=== PATIENT | male | born 1975 | race Caucasian/White ===

== ENCOUNTER 2019-06-12 06:02 | Day surgery (SDC) | payer BC ==
--- NOTE | 2019-06-05 10:31 | RAD REPORT ---
EXAM DESCRIPTION: RAD - Chest Pa And Lat (2 Views) - 06/05/2019 10:23 am CLINICAL HISTORY: preop Chest pain. COMPARISON: No comparisons FINDINGS: The lungs are clear. The heart is normal in size. No displaced fractures. Sternotomy wires noted. IMPRESSION: No acute or concerning finding suspected.
[2019-06-05 10:45] LABS: Absolute Lymphocytes (CBC) 2.9 K/uL (0.7-4.9); Basophils % 0.6 % (0-1.3); Hematocrit 46.5 % (39.6-49.0); Lymphocytes % 29.1 % (15.3-44.8); MPV 8.3 fL (7.6-11.3); RBC Red Blood Cell Count 5.24 M/uL (4.33-5.43)
[2019-06-05 10:48] LABS: Protime INR 0.96
[2019-06-05 10:54] LABS: Potassium 4.6 mmol/L (3.5-5.1)
--- NOTE | 2019-06-11 16:44 | PREOPHP ---
Date of Admission: 06/05/2019 History Of Present Illness: The patient presents to my office with chief complaint of a lump on the top of his foot overlying the second toe area on the left foot, present for only approximately 2 week s per the patient. The patient requests evaluation. Past Medical History: History of gout, ischemic heart disease, and hypertension. Past Surgical History: Cholecystectomy and aortic valve replacement. Current Medications: Aspirin, Plavix 75 mg, Bystolic 2.5 mg, and valsartan 40 mg. Allergies: NKDA. Social History: Patient denies smoking, IV drug use. Admits to social beer drinking. Family History: Gout and hypertension in his father and gout and cancer in his mother. Physical Examination: Vital Signs: Patient's weight is 260 pounds, height 6 feet 3 inches. General Appearance: Patient is healthy, well developed, well nourished, well oriented x3. Vascular: Evaluation reveals dorsalis pedis and posterior tibial pulses to be 4/4 bilaterally. Capi llary refill time is 1 second. Temperature gradient is within normal limits. There is no chief comp laint of claudication bilaterally. 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 Subtalar joint shows incre ased varus bilaterally. There is forefoot supination and adductus bilaterally. There is a medial em inence of the first metatarsal head with range of motion of 70 degrees on the right foot. Equinus is noted to be 10 degrees bilaterally per goniometer measurement digits. Digits on both feet are in no rmal alignment. Muscle testing, knee assessment, and ankle assessment are all within normal limits. There is a soft tissue subcutaneous mass located dorsally above the second intermetatarsal space on the left foot. Skin is freely movable over the growth. It measures 1.5 cm in diameter. There are n o skin changes seen, redness, or temp. It is mildly tender on palpation. Skin: Evaluation reveals no rash, ulcer, tumor, or contracture. Neurologic: Evaluation reveals deep tendon reflexes for the patellar and Achilles to be 5/5 bilatera lly. Vibratory and sharp dull sensation within normal limits. X-ray evaluation reveals no changes to the bone. In the area of the second interspace, there is a mi ld increase in density on the x-ray, but other than that, no changes on the x-ray were seen in the ar ea of the soft tissue mass. MRI evaluation detected a 2.5 mm cyst or erosion on the lateral margin o f the second metatarsal head, which was not visualized on x-ray. There was a 12 mm x 10 mm x 15 mm s oft tissue mass located, present at the dorsum of the forefoot at the level of the second metatarsal head abutting the lateral aspect of the extensor tendon and the second digit. There is a mild hyperi ntense signal on the T1 view. The soft tissue mass does not invade the bone or the tendon. 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 Diagnosis: Soft tissue mass, left foot. Recommendations: Excisional biopsy of soft tissue mass in the operating room with a frozen done firs t due to the rapid onset of the growth. Patient understands risks, benefits, and alternatives of the above-mentioned procedure including, but not limited to the risk of pain, swelling, numbness, stiffn ess, infection, nonhealing of skin or bone, recurrence of the soft tissue mass has also been explaine d to the patient. Due to the nature of the growth, patient understands that leaving it alone is not a viable alternative as this presents the risk of undiagnosed malignancy or enlargement of the growth necessitating a more involved removal at a later date. Patient has been cleared by Dr. Freitas from a cardiac standpoint. His Plavix and aspirin have been stopped 5 days prior to surgery and will be restarted after surgery. Patient was instructed on use of cold therapy machine. Lab work was perfor med. Medical H and P will be completed by Anesthesia. The patient is scheduled for surgery at [facility] on May. ARIANNA/YULIET Voice ID: [id number]
--- OUTSIDE RECORDS SUMMARY | 2019-06-12 06:10 | XMS REPORT | Summary of Care ---
:1975 Author Organization [facility] Address [address], [place] [address]- Encounter HQ Jaime(FIN) [id number] Date(s): 02/08/19 - 02/08/[address] [address]- [place] Discharge Disposition: Home or Self Care Attending Physician: Jose Miguel West MD Admitting Physician: Jose Miguel West MD Referring Physician: Jose Miguel West MD Vital Signs Most recent to oldest [Reference Range]: 1 2 Height 190.5 cm (02/08/19 7:46 AM) Blood Pressure [90-140/60-90 mmHg] 120/66 mmHg 114/69 mmHg (02/08/19 9:21 AM) (02/08/19 7:51 AM) Respiratory Rate [14-20 BRMIN] 16 BRMIN 15 BRMIN (02/08/19 9:21 AM) (02/08/19 7:51 AM) Peripheral Pulse Rate [60-100 bpm] 67 bpm 65 bpm (02/08/19 9:21 AM) (02/08/19 7:51 AM) Weight 112.727 kg (02/08/19 7:46 AM) Body Mass Index 31.06 m2 (02/08/19 7:46 AM) Problem List Condition Effective Dates Status Health Status Informant Gout(Confirmed) Active HTN (hypertension)(Confirmed) Active Allergies, Adverse Reactions, Alerts No Known Medication Allergies Medications aspirin 325 mg tablet, enteric coated 0 Refill(s) Start Date: 02/08/19 Status: OrderedBystolic 20 mg oral tablet 0 Refill(s) Start Date: 02/08/19 Status: OrderedDiovan 320 mg oral tablet 0 Refill(s) Start Date: 02/08/19 Status: Ordered Results Most recent to oldest [Reference Range]: 1 eGFR 92 mL/min/1.73m2 1 *NA* (02/08/19 8:03 AM) POC Creatinine [0.5-1.4 mg/dL] 1.0 mg/dL (02/08/19 8:03 AM) 1Result Comment: The eGFR is calculated using the CKD-EPI formula. In most young , healthy individualsthe eGFR will be >90 mL/min/1.73m2. The eGFR declines with age. An eGFR of 60-89 may be normal insome populations, particularly the elderly, for whom the CKD-EPI formula has not been extensively validated. Use of the eGFR is not recommended in the following populations: Individuals with unstable creatinine concentrations, including patients and those with serious co-morbid conditions. Patients with extremes in muscle mass or diet. The data above are obtained from the National Kidney Disease Education Program ( NKDEP) which additionally recommends that when the eGFR is used in patients with extremes of body mass index for purposesof drug dosing, the eGFR should be multiplied by the estimated BMI. Immunizations No data available for this section Procedures No data available for this section Social History Social History Type Response Smoking Status Never smoker; Ready to change: No; Concerns about tobacco use in household: No; Exposure to Tobacco Smoke None; Cigarette Smoking Last 365 Days No; Reg Smoking Cessation Counseling Yes entered on: 02/08/19 Assessment and Plan No data available for this section
--- OUTSIDE RECORDS SUMMARY | 2019-06-12 06:10 | XMS REPORT | Continuity of Care Document ---
:1975 Author Organization [employer] Care Team Providers Name Role Phone [employer] Unavailable Unavailable Problems Problem Status Onset Classification Date Comments Source Date Reported PREADMIT / TAVR Active [facility] / MAC / [facility] I35.[address] NONRHEUMATIC Active [facility] MITRAL (VALVE) [address] [place] [address] [facility] Active Problem 03/18/2019 [facility] HTN (Confirmed) Active Problem 03/18/2019 [facility] Medications Medication Details Route Status Patient Ordering Order Source Instructions Provider Date Aspirin 81 MG 81 mg=1 tab, PO, Active [facility] Chewable Tablet Daily, # 30 tab, 2018 Medical 3 Refill(s), [place] [facility] [address] clopidogrel 75 75 mg=1 tab, PO, Active 03/16[facility] mg oral tablet Daily, # 30 tab, 2018 Medical 3 Refill(s), [place] [facility]: [facility] [address] Enoxaparin 40 mg, 0.4 mL, Inactive [facility] Route: SUB-Q, 2019 Medical Drug form: INJ, [place] [id number], Dosing Weight 116.818, kg, Start date: 03/16/19 9:00:00 CDT, Duration: 30 day, Stop date: 04/14/19 9:00:00 CDTNotes: (Same as: Lovenox) Diovan 320 mg, 2 tab, Inactive [facility] Route: PO, Drug 2019 Medical form: TAB, Center Daily, Dosing Weight 116.818, kg, Start date: 03/16/19 9:00:00 CDT, Duration: 30 day, Stop date: 04/14/19 9:00:00 CDTNotes: Same as [place] POLYETHYLENE 17 gm, 1 pkt, Inactive [facility] GLYCOL 3350 Route: PO, Drug 2019 Medical form: PWDR, Center Daily, Dosing Weight 116.818, kg, Start date: 03/16/19 9:00:00 CDT, Duration: 30 day, Stop date: 04/14/19 9:00:00 CDTNotes: Dissolve in 8 oz of water or juice. (Same as: Miralax) Aspirin 81 mg, 1 tab, Inactive [place] Route: PO, Drug 2018 Medical form: ECTAB, Center Daily, Dosing Weight 116.818, kg, Start date: 03/16/19 9:00:00 CDT, Duration: 30 day, Stop date: 04/14/19 9:00:00 CDTNotes: Do not crush or chew. (Same As: Ecotrin) Tylenol 1,000 mg, 2 tab, No Longer [place] Route: PO, Drug Active 2018 Medical form: TAB, Q6H, Center Dosing Weight 116.818, kg, PRN Pain Score 1-5, Start date: 03/15/19 21:36:00 CDT, Duration: 30 day, Stop date: 04/14/19 21:35:00 CDTNotes: Max acetaminophen 4000 mg/day (4 gm/day). (Same as: Tylenol Extra Strength) Docusate 100 mg, 1 cap, No Longer [place] Route: PO, Drug Active 2018 Medical form: CAP, Q12H, Center Dosing Weight 116.818, kg, Start date: 03/15/19 21:00:00 CDT, Duration: 30 day, Stop date: 04/14/19 9:00:00 CDTNotes: (Same as: Colace) (Do Not Crush) benzonatate 100 mg, 1 cap, No Longer [place] Route: PO, Drug Active 2018 Medical form: CAP, TID, Center Dosing Weight 116.818, kg, PRN Cough, Start date: 03/15/19 20:58:00 CDT, Duration: 30 day, Stop date: 04/14/19 20:57:00 CDTNotes: (Same As: Amanda Hough) "Do Not Crush" Plavix 75 mg, 1 tab, No Longer [place] Route: PO, Drug Active 2018 Medical form: TAB, Center Daily, Dosing Weight 116.818, kg, Start date: 03/15/19 20:34:00 CDT, Duration: 30 day, Stop date: 04/14/19 9:00:00 CDTNotes: (Same As: Plavix) pantoprazole 40 mg, 1 tab, No Longer [facility] Route: PO, Drug Active 2018 Medical form: ECTAB, Center Before Dinner, Dosing Weight 116.818, kg, Start date: 03/15/19 16:30:00 CDT, Duration: 30 day, Stop date: 04/13/19 16:30:00 CDTNotes: Tablet should not be chewed or crushed. (Same as: Protonix) Cefazolin 1 gm, Route: Inactive [facility] IVPB, Q8H, 2019 Medical Dosing Weight Center 116.818, kg, Start date: 03/15/19 16:00:00 CDT, Duration: 1 doses or times, Stop date: 03/15/19 16:00:00 CDT, ABX Indication: Surgical ProphylaxisNotes : (Same As: Ancef Kefzol) MEDICATION WASTE Product Size: 1000 mg Product Wasted: ___ mg protamine Route: IV, Drug Inactive [place] (ANES) form: INJ, ONCE, 2018 Medical Stop date: [place] 03/15/19 10:34:00 CDT Ondansetron 4 mg, 2 mL, Inactive [facility] Route: IVP, Drug 2018 Medical form: INJ, ONCE, Center Dosing Weight 116.818, kg, PRN Nausea & Vomiting, Start date: 03/15/19 10:31:00 CDTNotes: (Same as: Zofran) MEDICATION WASTE Product Size: 4 mg Product Wasted: ___ mg Flumazenil 0.2 mg, 2 mL, Inactive [facility] Route: IVP, Drug 2018 Medical form: INJ, PRN, Center Dosing Weight 116.818, kg, PRN Benzodiazepine Reversal, Initial dose, Start date: 03/15/19 10:31:00 CDT, Duration: 30 day, Stop date: 04/14/19 10:30:00 CDTNotes: (Same as: Romazicon) Oxycodone 5 mg, 1 tab, Inactive [place] Hydrochloride 5 Route: PO, Drug 2019 Medical MG Oral Tablet form: TAB, Q4H, Center Dosing Weight 116.818, kg, PRN Pain Score 4-6, Start date: 03/15/19 10:31:00 CDT, Duration: 30 day, Stop date: 04/14/19 10:30:00 CDTNotes: (Same as: Roxicodone) Naloxone 0.4 mg, 1 mL, Inactive [place] Route: IVP, Drug 2019 Medical form: INJ, Center Q2MIN, Dosing Weight 116.818, kg, PRN Narcotic Reversal, Start date: 03/15/19 10:31:00 CDT, Duration: 8 doses or times, Stop date: Limited # of timesNotes: Same as Narcan Acetaminophen 1,000 mg, 2 tab, Inactive [place] Route: PO, Drug 2019 Medical form: TAB, ONCE, Center Dosing Weight 116.818, kg, PRN Pain Score 1-3, Start date: 03/15/19 10:31:00 CDTNotes: Max acetaminophen 4000 mg/day (4 gm/day). (Same as: Tylenol Extra Strength) Fentanyl 25 microgram, Inactive [place] 0.5 mL, Route: 2019 Medical IVP, Drug form: Center INJ, Q5Min, Dosing Weight 116.818, kg, PRN Pain Score 4-6, Priority: Routine, Start date: 03/15/19 10:31:00 CDT, Duration: 4 doses or times, Stop date: Limited # of timesNotes: (Same as: Sublimaze) Preservative free. Hydralazine 10 mg, 0.5 mL, Inactive [place] Route: IVP, Drug 2019 Medical form: INJ, Center Q20Min, Dosing Weight 116.818, kg, PRN Elevated BP, Start date: 03/15/19 10:31:00 CDT, Duration: 2 doses or times, Stop date: Limited # of timesNotes: (Same as: Apresoline) Push over 5 minutes Sodium Chloride Route: IV, Total Inactive [place] 0.9% IV (ANES) Volume: 250, 2019 Medical 250 mL Start date: [place] 03/15/19 10:31:00 CDT, Stop date: 03/15/19 11:31:00 CDT Nicardipine 40 mg, 200 mL, Inactive [facility] Rate: Titrate, 2018 Medical Start Dose: 5 Center mg/hr, Titration: 2mg every 15 minutes PRN, Goal(s): maintain MAP 75-85 mmHg, Max Dose: 15mg/hr, Route: IV, Dosing Weight 116.818 kg, Total Volume: 200, Start date: 03/15/19 9:20:00 CDT, Duration: 30 day, St...Notes: Same as: Cardene Concentration: (0.2 mg /1 ml ) Ondansetron 4 mg, 2 mL, No Longer [facility] Route: IVP, Drug Active 2018 Medical form: INJ, Q8H, [place] Dosing Weight 116.818, kg, PRN Nausea & Vomiting, Start date: 03/15/19 9:20:00 CDT, Duration: 30 day, Stop date: 04/14/19 9:19:00 CDTNotes: (Same as: Zofran) MEDICATION WASTE Product Size: 4 mg Product Wasted: ___ mg Acetaminophen 1,000 mg, 100 No Longer [facility] mL, Route: IVPB, Active 2018 Medical Drug form: INJ, Center ONCE, Dosing Weight 116.818, kg, PRN Pain Score 1-3, Start date: 03/15/19 9:20:00 CDTNotes: Infuse over 15 minutes Do not exceed 4gm/day of acetaminophen MEDICATION WASTE Product Size: 1000 mg Product Wasted: ___ mg ceFAZolin Route: IV, Drug Inactive [place] (ANES) form: INJ, ONCE, 2018 Medical Stop date: [place] 03/15/19 9:12:00 CDT fentaNYL (ANES) Route: IV, Drug Inactive [place] form: INJ, ONCE, 2018 Medical Stop date: [place] 03/15/19 9:12:00 CDT heparin (ANES) Route: IV, Drug Inactive [place] form: INJ, ONCE, 2018 Medical Stop date: [place] 03/15/19 9:12:00 CDT propofol (ANES) Route: IV, Drug Inactive [place] 10 mg form: INJ, Start 2018 Medical date: 03/15/19 Center 8:20:00 CDT, Stop date: 03/15/19 9:20:00 CDT Fluticasone 1 spray, NASAL, Active [facility] propionate 0.05 Daily, # 16 gm, 2019 Medical MG/ACTUAT 0 Refill(s) Center Metered Dose Nasal [place] montelukast 10 10 mg=1 tab, PO, Active [place] mg oral tablet Daily, # 30 tab, 2019 Medical 0 Refill(s) [place] Exparel 20 mL, Route: No Longer [place] InFILtration(loc Active 2018 Medical al), Drug Form: Center INJ, Dosing Weight 112.727, kg, 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 Bunionectomy: 7 mL into the tissues surrounding the osteotomy and 1 mL into the subcutaneous tissue of the surgical site (total dose=8 mL [106 mg]) Hemorrhoidectomy : 30 mL (20 mL vial diluted with 10 mL NS) divided and administered as 6 injections of 5 mL each (total dose=30 mL [266 mg]) Interscalene brachial plexus nerve block: Single dose: Total shoulder arthroplasty or rotator cuff repair: 133 mg (10 mL) Sodium Chloride 250 mL, 250 Inactive [place] 0.9% (Bolus) IV ml/hr, Infuse 2019 [facility] Over: 1 hr, [place] Route: IV, 250, Drug form: INJ, ONCALL, Priority: Routine, Dosing Weight 112.727 kg, Start date: 03/15/19 6:00:00 CDT, Duration: 1 doses or times Sodium Chloride 250 mL, Rate: To No Longer [place] 0.9% (titrate) prime line and Active 2018 Medical 250 mL flush remaining Center blood products., Dosing Weight 112.727, kg, Route: IV, Total Volume: 250, Start Date: 03/15/19 5:53:00 CDT, Duration: 30 day, Stop date: 04/14/19 5:52:00 CDT, Replace Every: 24 hr Sodium Chloride 750 mL, Rate: 75 Inactive [facility] 0.9% IV 750 mL ml/hr, Infuse 2018 Medical over: 10 hr, Center Route: IV, Dosing Weight 112.727 kg, Total Volume: 750, Start date: 03/15/19 5:53:00 CDT, Duration: 24 hr, Stop date: 03/16/19 5:52:00 CDT, 2.46, m2 Aspirin 325 MG 0 Refill(s) Active [facility] Enteric Coated 2018 Medical Tablet Center nebivolol 20 MG 0 Refill(s) Active [facility] Oral Tablet 2018 [facility] [Bystolic] [place] valsartan 320 0 Refill(s) Active [facility] MG Oral Tablet 2018 [facility] [Diovan] Center Allergies, Adverse Reactions, Alerts Substance Category Reaction Severity Reaction Status Date Comments Source type Reported No Known Assertion Drug [facility] Medication allergy Medical Allergies Center Immunizations No Data Provided for This Section Results Order Name Results Value Reference Date Interpretation Comments Source Range CHEM PANEL eGFR 95 03/16 Result Comment: The Medical eGFR is Center calculated using the CKD-EPI formula. In most young, healthy individuals the eGFR will be >90 mL/min/1.73m2 . The eGFR declines with age. An eGFR of 60-89 may be normal in some populations, particularly the elderly, for whom the CKD-EPI formula has not been extensively validated. Use of the eGFR is not recommended in the following populations:< br/>
Danae viduals with unstable creatinine concentration s, including patients and those with serious co-morbid conditions.<b r/>
Patie nts with extremes in muscle mass or diet.

The data above are obtained from the National Kidney Disease Education Program (NKDEP) which additionally recommends that when the eGFR is used in patients with extremes of body mass index for purposes of drug dosing, the eGFR should be multiplied by the estimated BMI. CHEM PANEL Sodium Lvl 139 135 - 145 03/16 [facility] 2018 [facility] CHEM PANEL Glucose Lvl 103 70 - 99 03/16 2018 [facility] CHEM PANEL BUN 19 7 - 22 03/16 [facility]2018 [facility] CHEM PANEL Creatinine 0.98 0.50 - 03/16 [place] Lvl 1.40 [facility] CHEM PANEL Chloride Lvl 108 95 - 109 03/16 2018 [facility] CHEM PANEL Calcium Lvl 8.2 8.5 - 10.5 03/16 2018 [facility] CHEM PANEL Potassium Lvl 4.0 3.5 - 5.1 03/16 2018 [facility] CHEM PANEL CO2 27 24 - 32 03/16 2018 [facility] CHEM PANEL AGAP 8.0 10.0 - 03/16 [place] 20.0 [facility] CHEM PANEL Magnesium Lvl 2.3 1.8 - 2.4 03/16 [facility]2018 [facility] HEMATOLOGY Monocytes # 0.7 0.0 - 0.8 03/16 2018 [facility] HEMATOLOGY Eosinophils # 0.2 0.0 - 0.5 03/16 [facility] HEMATOLOGY Basophils 0.4 0.0 - 1.0 03/16 2018 [facility] HEMATOLOGY Neutrophils # 4.5 1.5 - 8.1 03/16 2018 [facility] HEMATOLOGY Eosinophils 2.2 0.0 - 4.0 03/16 [facility]2018 [facility] HEMATOLOGY Lymphocytes # 2.0 1.0 - 5.5 03/16 [facility]2018 [facility] HEMATOLOGY Segs 61.3 45.0 - 03/16 [place] 75.0 2019 [facility] HEMATOLOGY Lymphocytes 26.9 20.0 - 03/16 [place] 40.0 2019 [facility] HEMATOLOGY Monocytes 9.2 2.0 - 12.0 03/16 2018 [facility] HEMATOLOGY PT 12.8 12.0 - 03/16 [place] 14.7 [facility] HEMATOLOGY PTT 26.0 22.9 - 03/16 [place] 35.8 2019 [facility] HEMATOLOGY INR 0.98 0.85 - 03/16 [place] 1.17 [facility] HEMATOLOGY Hct 36.7 42.0 - 03/16 [place] 54.0 /2019 [facility] HEMATOLOGY RBC 4.01 4.70 - 03/16 [place] 6.10 [facility] HEMATOLOGY MCV 91.5 80.0 - 05/31 [place] 94.0 [facility] HEMATOLOGY Hgb 12.8 14.0 - 03/16 [place] 18.0 [facility] HEMATOLOGY WBC 7.4 3.7 - 10.4 03/16 [facility] HEMATOLOGY MCHC 34.8 32.0 - 03/16 [place] 36.0 [facility] HEMATOLOGY Platelet 158 133 - 450 03/16 2018 [facility] HEMATOLOGY RDW 13.4 11.5 - 03/16 14.5 [facility] HEMATOLOGY MPV 8.9 7.4 - 10.4 03/16 [facility] HEMATOLOGY MCH 31.8 27.0 - 03/16 [facility] 31.0 [facility] LIPIDS VLDL 53 03/16 [facility] LIPIDS LDL 60 <=99 mg/dL 03/16 [facility] (Calculated) [facility] LIPIDS Trig 267 <=149 03/16 [facility] mg/dL [facility] LIPIDS HDL 51 >=61 mg/dL 03/16 [facility] LIPIDS Chol 164 <=199 03/16 [facility] mg/dL [facility] LIPIDS CHD Risk 3.22 4.00 - 03/16 [facility] 7.30 [facility] CHEM PANEL Magnesium Lvl 1.8 1.8 - 2.4 03/15 [facility] ELECTROLYTE AGAP 11.7 10.0 - 03/15 [facility] S 20.0 [facility] ELECTROLYTE eGFR 109 03/15 Result [facility] Comment: The [facility] eGFR is Center calculated using the CKD-EPI formula. In most young, healthy individuals the eGFR will be >90 mL/min/1.73m2 . The eGFR declines with age. An eGFR of 60-89 may be normal in some populations, particularly the elderly, for whom the CKD-EPI formula has not been extensively validated. Use of the eGFR is not recommended in the following populations:< br/>
Danae viduals with unstable creatinine concentration s, including patients and those with serious co-morbid conditions.<b r/>
Patie nts with extremes in muscle mass or diet.

The data above are obtained from the National Kidney Disease Education Program (NKDEP) which additionally recommends that when the eGFR is used in patients with extremes of body mass index for purposes of drug dosing, the eGFR should be multiplied by the estimated BMI. ELECTROLYTE Sodium Lvl 138 135 - 145 03/15 [facility] 2018 [facility] ELECTROLYTE Potassium Lvl 4.7 3.5 - 5.1 03/[address] ELECTROLYTE Chloride Lvl 107 95 - 109 03/[address] ELECTROLYTE Glucose Lvl 89 70 - 99 03/15 [facility]2018 [facility] ELECTROLYTE CO2 24 24 - 32 03/[address] ELECTROLYTE Calcium Lvl 7.9 8.5 - 10.5 03/15 [facility]2018 [facility] ELECTROLYTE BUN 15 7 - 22 03/[address] ELECTROLYTE Creatinine 0.82 0.50 - 03/15 [facility] Lvl 1.40 [facility] HEMATOLOGY Eosinophils # 0.2 0.0 - 0.5 03/[address] HEMATOLOGY Basophils 0.5 0.0 - 1.0 03/[address] HEMATOLOGY Neutrophils # 3.2 1.5 - 8.1 03/[address] HEMATOLOGY Lymphocytes # 1.9 1.0 - 5.5 03/[address] HEMATOLOGY Monocytes # 0.6 0.0 - 0.8 03/[address] HEMATOLOGY Lymphocytes 32.2 20.0 - 03/15 [facility] 40.0 [facility] HEMATOLOGY Segs 55.0 45.0 - 03/15 [place] 75.0 [facility] HEMATOLOGY Monocytes 9.7 2.0 - 12.0 03/[address] HEMATOLOGY Eosinophils 2.6 0.0 - 4.0 03/15 2018 [facility] HEMATOLOGY MCHC 35.0 32.0 - 03/15 [place] 36.0 [facility] HEMATOLOGY MCH 32.2 27.0 - 03/15 [place] 31.0 [facility] HEMATOLOGY RDW 13.6 11.5 - 03/15 [place] 14.5 [facility] HEMATOLOGY RBC 3.94 4.70 - 03/15 [place] 6.10 [facility] HEMATOLOGY Hgb 12.7 14.0 - 03/15 [place] 18.0 [facility] HEMATOLOGY WBC 5.8 3.7 - 10.4 03/[address] HEMATOLOGY Hct 36.2 42.0 - 03/15 [place] 54.0 [facility] HEMATOLOGY MCV 91.9 80.0 - 03/15 [place] 94.0 [facility] HEMATOLOGY Platelet 153 133 - 450 03/15 [facility] HEMATOLOGY MPV 8.7 7.4 - 10.4 03/15 [facility] HEMATOLOGY INR 1.15 0.85 - 03/15 [place] 1.17 /2018 [facility] HEMATOLOGY PTT 43.3 22.9 - 03/15 [place] 35.8 [facility] HEMATOLOGY PT 14.5 12.0 - 03/15 [place] 14.7 [facility] PARATHYROID Ca Ion WB 1.11 1.05 - 03/15 [facility] PROFILE 1. [facility] PARATHYROID Ca Norm WB 1.07 1.05 - 03/15 [facility] PROFILE 1. [facility] HEMATOLOGY POC Activated 110 03/15 [facility] Clotting Time [facility] HEMATOLOGY POC Activated 343 03/15 [facility] Clotting Time [facility] HEMATOLOGY POC Activated 186 03/15 [facility] Clotting Time [facility] URINE AND UA <1.0 0.1 - 1.0 03/15 [facility] Urobilinogen /2018 [facility] URINE AND UA Nitrite Negative Negative 03/15 [facility] (03/15/19 6:52 AM) [facility] URINE AND UA Glucose Negative Negative 03/15 [facility] mg/dL mg/dL [facility] URINE AND UA Ketones Negative Negative 03/15 [facility] mg/dL mg/dL [facility] URINE AND UA Blood Negative Negative 03/15 [facility] (03/15/19 6:52 AM) [facility] URINE AND UA Bili Negative Negative 03/15 [facility] STOOL *NA* /2018 [facility] (03/15/19 6:52 AM) [place] URINE AND UA RBC <1 0 - 2 03/15 [facility] STOOL [facility] URINE AND UA WBC <1 0 - 5 03/15 [facility] STOOL [facility] URINE AND UA Leuk Est Negative Negative 03/15 [facility] (03/15/19 6:52 AM) [facility] URINE AND UA Sq Epi None Seen 03/15 [facility] STOOL [facility] URINE AND UA pH 5.0 5.0 - 8.0 03/15 [facility] STOOL [facility] URINE AND UA Color Light Yellow Yellow 03/15 [facility] STOOL *NA* /2018 [facility] (03/15/19 6:52 AM) [place] URINE AND UA Spec Grav 1.006 <=1.030 03/15 [facility] STOOL [facility] URINE AND UA Turbidity Clear Clear 03/15 [facility] STOOL (03/15/19 6:52 AM) [facility] URINE AND UA Protein Negative Negative 03/15 [facility] STOOL mg/dL mg/dL [facility] BLOOD BANK ABO/Rh AB POS 03/15 [facility] RESULTS [facility] BLOOD BANK Antibody Scrn Negative 03/15 [facility] RESULTS (03/15/19 6:22 AM) [facility] BLOOD BANK RBC product Product available 03/15 [facility] RESULTS (03/15/19 5:53 AM) [facility] BLOOD BANK FFP product Product available 03/15 [facility] RESULTS (03/15/19 5:53 AM) [facility] CARDIAC BNP 166 <=100 03/15 [facility] ENZYMES pg/mL [facility] CHEM PANEL Magnesium Lvl 2.0 1.8 - 2.4 03/15 [facility] CHEM PANEL B/C Ratio 19 6 - 25 03/15 [facility] CHEM PANEL AGAP 12.3 10.0 - 03/15 [facility] 20.0 [facility] CHEM PANEL Globulin 3.0 2.7 - 4.2 03/15 [facility] CHEM PANEL A/G Ratio 1.2 0.7 - 1.6 03/15 [facility] CHEM PANEL eGFR 101 03/15 Result Comment: The [facility] eGFR is Center calculated using the CKD-EPI formula. In most young, healthy individuals the eGFR will be >90 mL/min/1.73m2 . The eGFR declines with age. An eGFR of 60-89 may be normal in some populations, particularly the elderly, for whom the CKD-EPI formula has not been extensively validated. Use of the eGFR is not recommended in the following populations:< br/>
Danae viduals with unstable creatinine concentration s, including patients and those with serious co-morbid conditions.<b r/>
Patie nts with extremes in muscle mass or diet.

The data above are obtained from the National Kidney Disease Education Program (NKDEP) which additionally recommends that when the eGFR is used in patients with extremes of body mass index for purposes of drug dosing, the eGFR should be multiplied by the estimated BMI. CHEM PANEL Chloride Lvl 106 95 - 109 03/[address] CHEM PANEL CO2 25 24 - [address] CHEM PANEL Sodium Lvl 139 135 - 145 03/[address] CHEM PANEL Potassium Lvl 4.3 3.5 - 5.1 03/[address] CHEM PANEL Creatinine 0.93 0.50 - 03/15 [facility] Lvl 1.40 [facility] CHEM PANEL BUN 18 7 - 22 03/[address] CHEM PANEL Calcium Lvl 8.4 8.5 - 10.5 03/[address] CHEM PANEL Glucose Lvl 93 70 - 99 03/[address] CHEM PANEL AST 20 0 - 37 03/[address] CHEM PANEL Alk Phos 37 39 - 136 03/[address] CHEM PANEL ALT 25 0 - 65 03/[address] CHEM PANEL Albumin Lvl 3.5 3.5 - 5.0 03/[address] CHEM PANEL Bili Total 0.4 0.2 - 1.3 03/[address] CHEM PANEL Total Protein 6.5 6.4 - 8.4 03/[address] HEMATOLOGY MPV 8.7 7.4 - 10.4 03/[address] HEMATOLOGY Platelet 170 133 - 450 03/15 [facility]2018 [facility] HEMATOLOGY MCH 31.9 27.0 - 03/15 [place] 31.0 [facility] HEMATOLOGY Hct 38.9 42.0 - 03/15 [place] 54.0 [facility] HEMATOLOGY MCV 91.6 80.0 - 03/15 [place] 94.0 [facility] HEMATOLOGY RDW 13.6 11.5 - 03/15 [place] 14.5 [facility] HEMATOLOGY MCHC 34.9 32.0 - 03/15 [place] 36.0 [facility] HEMATOLOGY WBC 6.9 3.7 - 10.4 03/15 [facility]2018 [facility] HEMATOLOGY RBC 4.25 4.70 - 03/15 [place] 6.10 [facility] HEMATOLOGY Hgb 13.6 14.0 - 03/15 [place] 18.0 /2018 [facility] HEMATOLOGY PTT 28.9 22.9 - 03/15 [place] 35.8 /2018 [facility] HEMATOLOGY PT 13.3 12.0 - 03/15 [place] 14.7 /2018 [facility] HEMATOLOGY INR 1.03 0.85 - 03/15 [place] 1.17 [facility] HEMATOLOGY Eosinophils 2.5 0.0 - 4.0 03/15 2018 [facility] HEMATOLOGY Lymphocytes # 2.5 1.0 - 5.5 05/30 [facility] HEMATOLOGY Neutrophils # 3.5 1.5 - 8.1 03/15 [facility] HEMATOLOGY Basophils 0.8 0.0 - 1.0 03/15 2018 [facility] HEMATOLOGY Eosinophils # 0.2 0.0 - 0.5 03/15 2018 [facility] HEMATOLOGY Monocytes # 0.7 0.0 - 0.8 03/15 2018 [facility] HEMATOLOGY Monocytes 10.6 2.0 - 12.0 03/15 [facility] HEMATOLOGY Basophils # 0.1 0.0 - 0.2 03/15 [facility] HEMATOLOGY Segs 50.5 45.0 - 03/15 [place] 75.0 /2019 [facility] HEMATOLOGY Lymphocytes 35.6 20.0 - 03/15 [place] 40.0 2019 [facility] CHEM PANEL eGFR 92 02/08 [facility] Comment: The Medical eGFR is Center calculated using the CKD-EPI formula. In most young, healthy individuals the eGFR will be >90 mL/min/1.73m2 . The eGFR declines with age. An eGFR of 60-89 may be normal in some populations, particularly the elderly, for whom the CKD-EPI formula has not been extensively validated. Use of the eGFR is not recommended in the following populations:< br/>
Danae viduals with unstable creatinine concentration s, including patients and those with serious co-morbid conditions.<b r/>
Patie nts with extremes in muscle mass or diet.

The data above are obtained from the National Kidney Disease Education Program (NKDEP) which additionally recommends that when the eGFR is used in patients with extremes of body mass index for purposes of drug dosing, the eGFR should be multiplied by the estimated BMI. CHEM PANEL POC 1.0 0.5 - 1.4 02/08 [facility] Pathology Reports No Data Provided for This Section Diagnostic Reports Report Value Date Source Chest 1view DX EXAM: XR CHEST 1 VIEW 03/15/2019 [facility] [place] [facility] DATE: 03/15/2019 9:20 CDT Center INDICATION: Arrhythmias - s/p TAVR COMPARISON: None. TECHNIQUE: AP chest. FINDINGS: Lungs are better aerated on today's chest radiograph. Minimal left lower lobe subsegmental atelectasis. Postsurgical changes following TAVR. Mild atherosclerotic changes in the aortic arch. Med noemy sternotomy wires are unremarkable. No pleural effusions or pneumothorax. IMPRESSION: 1. Lungs are better evaluated on today's chest radiograph. Minimal left lower lobe subsegmental atelectasis and postsurgical changes following TAVR. Chest 1view DX EXAM: XR CHEST 1 VIEW 03/15/2019 [facility] [place] [facility] DATE: 03/15/2019 5:53 CDT Center INDICATION: Heart failure - pre TAVR. FINDINGS: Comparison is made to 04/19/2008. Cardiomediastinal silhouette and postoperative changes are stable. Patient has had remote median sternotomy for aortic valve replacement. The lungs are slightly low in volume, with elevated right hemidi aphragm. The lungs are clear. No pleural effusions. IMPRESSION: No acute intrathoracic abnormality identified. Heart/coronary art EXAM: CTA HEART WITH CONTRAST 02/08/2019 [facility] [place] [facility] TAVR CTA DATE: 02/08/2019 Center Date Readin02/09/19 INDICATION: Aortic valve disease that is post aortic valve replacement ,CAD COMPARISON: None TECHNIQUE: Contrast imaging was performed on a [employer] 640 slice MDCT scanner, utilizing a single breath-hold, space at 750 mA and 120 kV. A preliminary commercial litigation attorney study was obtained. Retrospective ECG gating wa s performed, at a heart rate of 58-60 bpm. Images were reformatted at 0.5 mm intervals and sent to the [employer] workstation for interpretation of 3D anatomic reconstructions, including multiplanar aspen nstructions (MPR), maximum intensity projections (MIP), and multi-planar imaging, and 4D cine reconstructions for functional evaluation of cardiac valves and ventricular chambers during systolic and diastolic phrases. IV contrast: 90 mL of Omnipaque 350 contrast was delivered intravenously at 6 mL/sec followed by a 50 mL normal saline bolus chaser. 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 Gelweaved Valsalva, and reimplantation of the right and left coronary ostia into 2008 Aortic valve: status post bioprosthetic aortic valve replacement Coplanar TAVR angle: ASH 1 CRANIAL 3 Aortic annulus: 32.2 x 29.5 mm; average 30.5 mm; area 7.29 sq cm; circumference 96.6 mm Ao annulus to coronary height: left main: 17.3 mm; right: 12.6 mm Ao annulus to STJ length: 34.6 mm Sinuses of Valsalva Width: left 40.7 mm, right 44.3 mm, non-coronary 42.2 mm Sino-tubular junction: 35.9 x 33.8 mm; average 34.4 mm Ascending aorta width at 40 mm from annulus: 35.0 x 32.0 mm; average 33.5 mm Descending thoracic aorta: 27.3x 24.1mm; average 25.6mm. Aorta is status post repair with graft replacement. Scattered calcified plaques noted in the aorta. Coronary Arteries: This patient has a right dominant system. Patient has history of reimplantation of the right and left ostia. Left main is a large caliber vessel that trifurcates into left anterior descending, ramus int ermedius, and left circumflex coronary arteries. There is a calcified plaque as the ostial of the left main, resulting in 5-10% stenosis. Left anterior descending coronary artery is a medium caliber ves mathew that has mild calcified plaques scattered throughout the vessel; no significant flow limiting stenosis visualized. Ramus intermedius is a small to medium size caliber vessel without hemodynamically significant stenosis seen. Left circumflex is a small caliber vessel with mild calcified plaques. Right coronary artery originated from the right coronary cusp with an anterior takeoff. The RCA is a med ium, dominant vessel that gives off to the PDA and the posterior lateral branch. No hemodynamically significant stenosis visualized. Basal septal hypertrophy: No Basal septal wall thickness: 10.7mm Intracardiac masses: No Other cardiac findings: Left ventricle appears dilated with normal systolic function. LV End-Diastolic Volume: 238 ml LV End-Systolic Volume: 94 ml LV Ejection Fraction: 61% Regional Wall Motion Abnormalities: No obvious regional wall motion abnormalities visualized. Pacemaker: No Artificial valve: Yes IMPRESSION: 1. Aortic valve disease status post aortic valve replacement. Measurements as mentioned above 2. Aortic disease status post graft replacement. 3. Nonobstructive coronary atherosclerotic disease. This was a cardiac CT angiogram study focusing on the cardiovascular system in the chest. Pathology outside this organ system may not have been fully evaluated and may not be delineated here. As such, i f pathology is suggested clinically, other testing should be performed. Please refer to separate chest, abdomen and pelvis CTA report by Radiology. Chest/Abd/Pelvis Focal dilatation at the origins of the right and left coronary arteries are of uncertain clinical significance. Medial wall defects or Kawasaki's disease are possible please correlate but this certainly is not diagnostic 02/08/2019 [facility] [place] [facility] TAVR CTA EXAM: VIR CT angiogram thorax abdomen and pelvis. TAVR protocol Center INDICATION: 44 years old Male with aortic stenosis TECHNIQUE: Following the administration of intravenous contrast, 3 mm slices from the thoracic inlet through the pubic symphysis were obtained in arterial phase. Images are reviewed on 3D workstation. COMPARISON: None FINDINGS: Vascular Measurements: Ascending aorta: 34 mm x 34 mm Aortic arch: 31 mm Mid-descending thoracic aorta: 21 mm x 23 mm Aorta at diaphragm: 19 mm x 19 mm Aorta at renal axis: 18 mm x 17 mm Aorta at bifurcation : 15 mm x 15 mm Right common iliac artery: 7 mm Right external iliac artery: 9 mm Right common femoral artery: 7 mm Left common iliac artery: 8 mm Left external iliac artery: 9 mm Left common femoral artery: 7 mm Right subclavian artery: Patent Left subclavian artery: Patent Calcific scores: Ascending aorta: 3 Aortic arch: 3 Descending thoracic aorta: 0 Aorta at diaphragm: 0 Suprarenal abdominal aorta: 0 Infrarenal abdominal aorta: 0 0 :none 1 :punctate calcifications 2 : <50% of vessel circumference is confluent calcification 3 : >50% of vessel circumference is confluent calcification vascular findings : Lower neck: The visible portions or the lower neck and thyroid are unremarkable. Axilla: Clear. Airway: Patent. Lungs and pleura: A punctate denilson-fissural granuloma is noted (series 7, axial image 64). The lungs are otherwise clear. No pulmonary consolidation, pleural effusion or pneumothorax. Mediastinum, keyla and intrathoracic lymph nodes: Calcified granulomas are present in the left hilum. Heart, pericardium and great vessels: A mechanical aortic valve is noted. Liver: Normal. Biliary tree: No intra- or extrahepatic biliary ductal dilation. Gallbladder: Surgically removed. Pancreas: Normal. Spleen: Normal. Adrenals: Normal. Kidneys and ureters: Normal. Bladder: Normal. Reproductive organs: Prostate and seminal vesicles are unremarkable. Gastrointestinal tract: Stomach: Normal. Small bowel: Normal. Colon: Diverticulosis involving the sigmoid colon noted without wall thickening or pericolonic fat stranding. Appendix: Normal appendix. Peritoneum, mesentery and retroperitoneum: No free air, ascites or loculated fluid. Lymph nodes: Normal. Vasculature: Aorta and branches: Dense atherosclerotic calcifications are noted in the aortic arch. There is luminal irregularity involving the entire descending aorta. An incidental ductus diverticulum at the aorti c isthmus with atherosclerotic calcifications is also noted. Saccular dilatation involves the proximal takeoff of the subclavian artery measuring approximately 2.3 cm. Additionally there is increased ca liber involving the proximal origin of the left common carotid artery measuring approximately 1.4 cm. There is aneurysmal dilatation at the ostia of the right and left coronary arteries with atherosclerotic calcification. There are dense atherosclerotic calcifications involving the left common iliac artery. IVC and veins: Normal. Portal vasculature: Normal. Bones: Sternotomy changes are noted. Grade 1 anterolisthesis of L5 on S1 is noted. At this level there is subchondral sclerosis and subchondral cyst formation with endplate irregularity and vacuum disc phenomenon. Bilateral pars defects are involve the L5 vertebral body. No acute osseous abnormality. Soft tissues: Normal. IMPRESSION: 1. CTA performed for TAVR planning, with measurements as indicated above. 2. Luminal irregularity of the ascending aorta with aortic atherosclerosis. 3. 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 I have reviewed these images and agree with the above findings. Consultation Notes No Data Provided for This Section Discharge Summaries No Data Provided for This Section History and Physicals No Data Provided for This Section Vital Signs Vital Sign Value Date Comments Source Systolic (mm Hg) 122 03/16/2019 [facility] Diastolic (mm Hg) 64 03/16/2019 [facility] Temperature Oral (F) 97.8 F 03/16/2019 [facility] Systolic (mm Hg) 125 03/16/2019 [facility] Diastolic (mm Hg) 62 03/16/2019 [facility] Systolic (mm Hg) 129 03/16/2019 [facility] Diastolic (mm Hg) 68 03/16/2019 [facility] Temperature Oral (F) 97.4 F 03/16/2019 [facility] Respitory Rate 16 03/16/2019 [facility] Temperature Oral (F) 97.5 F 03/16/2019 [facility] Respitory Rate 18 03/16/2019 [facility] Respitory Rate 16 03/16/2019 [facility] Weight 116.818 03/15/2019 [facility] Height 190.5 cm 03/15/2019 [facility] BMI Calculated 32.19 03/15/2019 [facility] Systolic (mm Hg) 120 02/08/2019 [facility] Diastolic (mm Hg) 66 02/08/2019 [facility] Respitory Rate 16 02/08/2019 [facility] Heart Rate 67 02/08/2019 [facility] Systolic (mm Hg) 114 02/08/2019 [facility] Diastolic (mm Hg) 69 02/08/2019 [facility] Respitory Rate 15 02/08/2019 [facility] Heart Rate 65 02/08/2019 [facility] BMI Calculated 31.06 02/08/2019 [facility] Weight 112.727 02/08/2019 [facility] Height 190.5 cm 02/08/2019 [facility] Height 190.5 cm 02/02/2019 [facility] Weight 112.727 02/02/2019 [facility] BMI Calculated 31.06 02/02/2019 [facility] Encounters Location Location Encounter Encounter Reason Attending ADM DC Status Source Details Type Number For Provider Date Date Visit [facility] [id number] [facility] 02/02 02/03 [facility] [id number] [facility] 02/08 02/09 [facility] [id number] [facility] 03/15 03/16 [facility] Procedures No Data Provided for This Section Assessment and Plan Assessment and Plan Date Source Extracted from:Title: CCU History and Physical 03/16/2019 [facility] Author: Mer Melendez MD Date: 03/15/19 Mr. Hardy 44yo M with PMH diastolic HF, Aortic valve replacement and ascending aortic aneurysm [id number], HLD and HTNadmitted to CCU post TAVR . #Severe Aortic Stenosis - s/p TAVR 03/15 and remotely s/p valve replacement and ascending aortic aneurysm repair 2007 - s/p post procedure IVF and cefazolin - aspirin 81mg and plavix 75mg for anticoagulation - will closely monitor blood pressure post procedure - restart home valsartan - holding home bystolic as patient was bradycardic post procedure, can consider adding upon discharge - post procedure EKG pending - post procedure TTE pending (to be done 03/16) - patient will need cardiac rehab upon discharge #HTN - restarting home valsartan 320mg daily - holding home bystolic while monitoring patient's HR overnight, can consider restarting in AM #HLD - reported hx of HLD but patient not on statin - lipid panel pending Diet: Heart healthy DVT ppx: lovenox subQ to start in AM Code Status: Full code Addendum by Razia Castellon MD on 03/16/2019 19:37 CDT Attending Attestation: I have seen the patient in collaboration with the house staff (resident and/or fellow). I have examined the patient independently, and have reviewed the history, radiographic and cardiac imaging, and diagnostic testing. I agree with the findings and plan outlined in the note by the resident/fellow. Extracted from:Title: Clinical Document Author: Cee Fish MD Date: 03/15/19 SURGEON Co-Surgeon DATE OF OPERATION Lloyd West M.D. 03/15/2019 PREOPERATIVE DIAGNOSIS: 1. Severe Aortic Stenosis 2. Status-Post AVR-#29mm Reanna Taylor Magna w/resection and #32 mm Gelweave graft replacement of the ascending aorta with SOV, March 2008 3. Moderate AR 4. Congestive heart failure, systolic, chronic NYHA Class III 5. STS 1.2 but >3% due to redo surgery [ intermediate risk] POSTOPERATIVE DIAGNOSIS: same NAME OF PROCEDURE: 1. Transcatheter aortic valve replacement (TAVR) utilizing a #29 Taylor Davian S3 pericardial valve via transfemoral approach with GETA 2. Percutaneous access of the right and left common femoral artery 3. Transthoracic ECHO performed by cardiology 4. Coronary artery arteriography FINDINGS AT THE TIME OF SURGERY: 1. Severe calcifications in the aortic valve. 2. The delivery system was passed without difficulty into the left ventricular outflow tract for deployment. 3. A 29 mm Davian S3 was required. 3. Post replacement YESSICA revealed no paravalvular leak. 4. Right pedal vessels (PT) with palpable pulse INDICATIONS: The risk and benefits were explained to the patient. He understands these risks and agrees to proceed with surgical intervention. The patient was seen by myself, Dr. Eric Sylvester ra, and Dr. West and deemed intermediate risk for conventional AVR. A valve in valve procedure was the only option for this patient. PROCEDURE IN DETAIL: Further details will be dictated by Dr. West as he was the children's literature professor. The patient was brought into the cardiac laboratory technician. A time-out procedure was performed whic h confirmed the patients name, MRN, and procedure to be performed. The patient was placed in the supine position on the operating table with general anesthesia. The chest, abdomen and groins were prepped and draped in the usual sterile manner. Access was obtained in the right common femoral artery, as well as right common femoral vein. An open incision was per formed with direct access to the right common femoral artery. Pacing was also placed in the RIGHT common femoral vein. Heparin was given intravenously, 1 mg/ ml to maintain an ACT > 250 seconds. T he RIGHT common femoral artery was prepared. Subsequently, test pacing was performed and obtained as expected at 180 beats per minute. An aortic angiogram root shot was performed, noting the optimal ang le for deployment of the valve. This confirmed the position already determined by CT angiogram 3-D reconstruction. Subsequently, the #29 mm Taylor DAVIAN S3 transcatheter valve was placed into the [facility] system in the RIGHT femoral artery (direct) and brought up through the aortic valve and placed in correct position. This was confirmed by the heart valve team. Subsequently, the rapid ventricular pac ing was performed, and the valve was deployed in the aortic annulus appropriately. The cordis and sheath were pulled back. Post-placement TTE revealed good placement of the valve with no aortic insuffic iency. The gradient was still 25 mmHg, and thus a 29 mm True Balloon was inserted into the aortic valve and the annulus was enlarged. The subsequent mean gradient was 11 mmHg. Subsequently, the sheaths were removed, the pacing wire was left in place. The right common femoral artery was closed in an interrupted fashion using 5-0 Prolene sutures. All wounds were then closed and sterile dressings were applied. I was present as co surgeon in conjunction with Dr. West. He will dictate their portions in detail of the procedure. The patient tolerated the procedure well and was taken to the Coronary Care Unit in stable condition. Sponge, needle and instrument counts x2 were correct. I was present for the entire procedure. Cee Fish M.D. Plan of Care No Data Provided for This Section Social History Social History Date Source Social History TypeResponse 03/15/2019 [facility] Substance Abuse Use: None. Alcohol Current, Type Beer, Liquor. Frequency: Daily. Previous treatment: None. Alcohol use interferes with work or home: No. Drinks more than intended: No. Others hurt by drinking: No. Ready to change: No. Household alcohol concerns: No. Smoking Status Never smoker; Ready to change: No; Concerns about tobacco use in household: No ; Exposure to Tobacco Smoke None; Cigarette Smoking Last 365 Days No; Reg Smoking Cessation Counseling Yes entered on: 03/15/19 Family History No Data Provided for This Section Advance Directives No Data Provided for This Section Functional Status No Data Provided for This Section
--- OUTSIDE RECORDS SUMMARY | 2019-06-12 06:10 | XMS REPORT | Summary of Care ---
:1975 Author Organization [facility] Address [address], [place] [address]- Encounter HQ Jaime(FIN) [id number] Date(s): 02/08/19 - 02/08/[address] [address]- [place] Discharge Disposition: Home or Self Care [...]
--- OUTSIDE RECORDS SUMMARY | 2019-06-12 06:11 | XMS REPORT | Summary of Care ---
:1975 Author Organization [facility] Address [address] [place] [address] Care Team Providers Name Role Phone Eric Thompson MD Primary Care Provider Rylie Ward MD Unavailable Unavailable Reason for Referral (Routine) Status Reason Specialty Diagnoses / Referred By Referred To Procedures Contact Contact New Request Location Orthopedic Diagnoses Plantar wart Jensen Quinn Surgery Procedures CONSULT/REFERRAL PODIATRY WHITLEY Sanders [address] [facility] [address] Reason for Visit Reason Comments Foot Pain bottom of left foot Encounter Details Date Type Department Care Team Description 05/17/2019 Office Visit [facility] Family Skye Quinn Plantar wart ( Primary Medicine - Xenia PA Dx) [address] [place] [address] [place] [phone] Allergies No Known Allergiesdocumented as of this encounter (statuses as of 05/17/2019) Medications Medication Sig Dispensed Refills Start Date End Date Status BYSTOLIC 20 mg tablet 20 mg. 0 10/20/2015 Active irbesartan 300 mg tablet Take 300 mg by 0 Active mouth at bedtime. valsartan (DIOVAN ORAL) Take by mouth. 0 Active amphetamine-dextroamphet Take 1 capsule 30 capsule 0 01/03/2019 Active amine (ADDERALL XR) 25 by mouth every mg 24 hr morning. capsuleIndications: ADHD (attention deficit hyperactivity disorder), combined type MONTELUKAST 10 mg TAKE 1 TABLET BY 30 tablet 0 02/12/2019 Active tabletIndications: MOUTH DAILY Seasonal allergic rhinitis due to pollen FLUTICASONE 50 SHAKE LIQUID AND 1 Bottle 0 02/12/2019 Active mcg/actuation nasal USE 1 TO 2 sprayIndications: SPRAYS IN EACH Seasonal allergic NOSTRIL DAILY rhinitis due to pollen TESTOSTERONE CYPIONATE INJECT 1.5 ML IN 10 mL 0 02/12/2019 Active 200 mg/mL THE MUSCLE EVERY injectionIndications: MONTH Seasonal allergic rhinitis due to pollen methylPREDNISolone 4 mg Take by mouth 21 Each 0 04/25/2019 Active tabletsIndications: SEE-INSTRUCTIONS Acute idiopathic gout of . follow package left foot directions allopurinol 300 mg Take 1 tablet by 30 tablet 11 04/25/2019 Active tabletIndications: mouth daily. Chronic gout of multiple sites, unspecified cause naproxen 500 mg Take 1 tablet by 30 tablet 1 05/04/2019 Active tabletIndications: mouth 2 (two) Chronic gout involving times daily as toe without tophus, needed for Pain unspecified cause, (scale 4-6). unspecified laterality indomethacin 25 mg Take 1 capsule 90 capsule 1 05/09/2019 Active capsuleIndications: by mouth 3 Acute gout, unspecified (three) times cause, unspecified site daily as needed for Pain. documented as of this encounter (statuses as of 05/17/2019) Active Problems Problem Noted Date History of thoracic aortic aneurysm repair 06/24/2017 Cardiac murmur 06/24/2017 Hypertension 10/24/2015 Hypogonadism, male 10/24/2015 documented as of this encounter (statuses as of 05/17/2019) Resolved Problems Problem Noted Date Resolved Date Gout 10/24/2015 07/05/2018 documented as of this encounter (statuses as of 05/17/2019) Immunizations Name Administration Dates Next Due Tdap 06/24/2017 documented as of this encounter Social History Tobacco Use Types Packs/Day Years Used Date Never Smoker Smokeless Tobacco: Current User Snuff Comments: 1 can per day; 22 years; tries off an on Alcohol Use Drinks/Week oz/Week Comments Yes 2 per day Sex Assigned at Date Recorded Not on file Job Start Date Occupation Industry Not on file Not on file Not on file Travel History Travel Start Travel End No recent travel history available. documented as of this encounter Last Filed Vital Signs Vital Sign Reading Time Taken Comments Blood Pressure 136/75 05/17/2019 1:07 PM CDT Pulse 73 05/17/2019 1:07 PM CDT Temperature 36.6 C (97.9 F) 05/17/2019 1:07 PM CDT Respiratory Rate - - Oxygen Saturation 98% 05/17/2019 1:07 PM CDT Inhaled Oxygen Concentration - - Weight 121.1 kg (267 lb) 05/17/2019 1:07 PM CDT Height - - Body Mass Index 33.37 05/03/2019 2:50 PM CDT documented in this encounter Progress Notes Skye Quinn PA - 05/17/2019 1:00 PM CDT Cc: Chief Complaint Patient presents with Foot Pain bottom of left foot Janes Hardy is a 44 year old male. Patient here due to concern for a plantar wart on L heel Noticed 2-3 weeks ago Has increased in size slightly Color- flesh colored No redness, warmth, tenderness No pain, swelling, purulent drainage, bleeding No f/c No pain with ROM, restricted ROM No numbness/tingling Tx: nothing Allergies Janes has No Known Allergies. Medications Outpatient Medications Prior to Visit Medication Sig Dispense Refill indomethacin 25 mg capsule Take 1 capsule by mouth 3 (three) times daily as needed for Pain. 90 capsule 1 naproxen 500 mg tablet Take 1 tablet by mouth 2 (two) times daily as needed for Pain (scale 4-6). 30 tablet 1 allopurinol 300 mg tablet Take 1 tablet by mouth daily. 30 tablet 11 BYSTOLIC 20 mg tablet 20 mg. methylPREDNISolone 4 mg tablets Take by mouth SEE-INSTRUCTIONS. follow package directions 21 Each 0 FLUTICASONE 50 mcg/actuation nasal spray SHAKE LIQUID AND USE 1 TO 2 SPRAYS IN EACH NOSTRIL DAILY 1 Bottle 0 MONTELUKAST 10 mg tablet TAKE 1 TABLET BY MOUTH DAILY 30 tablet 0 TESTOSTERONE CYPIONATE 200 mg/mL injection INJECT 1.5 ML IN THE MUSCLE EVERY MONTH 10 mL 0 amphetamine-dextroamphetamine (ADDERALL XR) 25 mg 24 hr capsule Take 1 capsule by mouth every morning. 30 capsule 0 valsartan (DIOVAN ORAL) Take by mouth. irbesartan 300 mg tablet Take 300 mg by mouth at bedtime. No facility-administered medications prior to visit. Histories Past Medical History: Diagnosis Date Aortic aneurysm and dissection ascending Aortic regurgitation Gout Hypertension Past Surgical History: Procedure Laterality Date CHOLECYSTECTOMY FRACTURE SURGERY THORACIC AORTIC ANEURYSM REPAIR Social History Socioeconomic History Marital status: Spouse name: Not on file Number of children: Not on file Years of education: Not on file Highest education level: Not on file Occupational History Not on file Social Needs Financial resource strain: Not on file Food insecurity: Worry: Not on file Inability: Not on file Transportation needs: Medical: Not on file Non-medical: Not on file Tobacco Use Smoking status: Never Smoker Smokeless tobacco: Current User Types: Snuff Tobacco comment: 1 can per day; 22 years; tries off an on Substance and Sexual Activity Alcohol use: Yes Comment: 2 per day Drug use: No Sexual activity: Yes Lifestyle Physical activity: Days per week: Not on file Minutes per session: Not on file Stress: Not on file Relationships Social connections: Talks on phone: Not on file Gets together: Not on file Attends protestant service: Not on file Active member of club or organization: Not on file Attends meetings of clubs or organizations: Not on file Relationship status: Not on file Intimate partner violence: Fear of current or ex partner: Not on file Emotionally abused: Not on file Physically abused: Not on file Forced sexual activity: Not on file Other Topics Concern Not on file 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 Respiratory: Negative for cough, chest tightness, shortness of breath and wheezing. Cardiovascular: Negative for chest pain, palpitations and leg swelling. Gastrointestinal: Negative for abdominal pain, diarrhea, nausea and vomiting. Musculoskeletal: Negative for arthralgias, back pain, gait problem, joint swelling and myalgias. Skin: Negative for color change, pallor, rash and wound. Neurological: Negative for weakness and numbness. Vital Signs BP 136/75 | Pulse 73 | Temp 36.6 C (97.9 F) (Tympanic) | Wt 267 lb ( 121.1 kg) | SpO2 98% | BMI 33.37 kg/m Physical Exam Constitutional: He is oriented to person, place, and time. He appears well- developed and well-nourished. No distress. HENT: Head: Normocephalic and atraumatic. Cardiovascular: Normal rate, regular rhythm and intact distal pulses. Murmur (known) heard. Pulmonary/Chest: Effort normal and breath sounds normal. Abdominal: Soft. Bowel sounds are normal. He exhibits no distension. There is no tenderness. There is no guarding. Musculoskeletal: Normal range of motion. Neurological: He is alert and oriented to person, place, and time. Skin: Skin is warm and dry. He is not diaphoretic. 1 cm plantar wart on L heel. No redness, warmth, swelling, tenderness, drainage. No pain with ROM orrestricted ROM Psychiatric: He has a normal mood and affect. His behavior is normal. Nursing note and vitals reviewed. Assessment/Plan Plantar wart (primary encounter diagnosis) Plan: CONSULT/REFERRAL PODIATRY Patient would like referral to podiatry for removal/excision, will refer. Pt ed/precautions given in detail regarding conditions/medicaitons. Er precautions given. Pt reportsunderstanding and agrees. rtc if s/s worsen or do not improve; Plan of care, desired health behaviors, goals, Ddx, & any prescribed or OTC medications discussed with patient. Education resources & self management tools provided and reviewed with AVS. Patient/guardian/family verbalized understanding & agrees to plan of care. Barriers to care: NONE Ability to manage care: Good This visit did not involve counseling and coordination that comprised more than 50% of the visit time.Electronically signed by Skye Quinn PA at 2018 1:35 PM CDTdocumented in this encounter Plan of Treatment Date Type Specialty Care Team Description 11/06/2019 Office Visit Family Medicine Eric Thompson MD [address] [place] [phone] Health Maintenance Due Date Last Done Comments PNEUMOCOCCAL 0-64 YEARS COMBINED SERIES (1 of 1 - 1983 PPSV23) INFLUENZA VACCINE 06/17/2019 DTaP,Tdap,and Td Vaccines (2 - Td) 06/24/2027 06/24/2017 documented as of this encounter Results Not on filedocumented in this encounter Visit Diagnoses Diagnosis Plantar wart - Primary documented in this encounter Insurance Payer Benefit Plan Subscriber ID Effective Dates Phone Address Type / Group [facility] [id number] 2017-Yoandy [phone] [address] PPO/ POS [place] [employer] t [id number] [place] [address] documented as of this encounter"
--- OUTSIDE RECORDS SUMMARY | 2019-06-12 06:11 | XMS REPORT | Summary of Care ---
:1975 Author Organization [facility] Address [address] [place], [place] [address]- Encounter HQ [email or web address](FIN) [id number] Date(s): 02/02/19 - 02/02/[address] [address]- [place] Discharge Disposition: Home or Self Care Attending Physician: Jose Miguel West MD Admitting Physician: Jose Miguel West MD Referring Physician: Jose Miguel West MD Vital Signs Most recent to oldest [Reference Range]: 1 Height 190.5 cm (02/02/19 8:29 AM) Weight 112.727 kg (02/02/19 8:29 AM) Body Mass Index 31.06 m2 (02/02/19 8:29 AM) Problem List No data available for this section Allergies, Adverse Reactions, Alerts Substance Reaction Severity Status NKDA Active Medications No data available for this section Results No data available for this section Immunizations No data available for this section Procedures No data available for this section Social History No data available for this section Assessment and Plan No data available for this section
--- OUTSIDE RECORDS SUMMARY | 2019-06-12 06:11 | XMS REPORT | Summary of Care ---
:1975 Author Organization [facility] Address [address] [place] [id number] Care Team Providers Name Role Phone Eric Thompson MD Primary Care Provider Rylie Ward MD Unavailable Unavailable Reason for Referral (Routine) Status Reason Specialty Diagnoses / Referred By Referred To Procedures Contact Contact New Request Location Orthopedic Diagnoses Plantar wart Jensen Quinn Surgery Procedures CONSULT/REFERRAL PODIATRY WHITLEY Sanders [address] [facility] [place] [place] [address] Reason for Visit Reason Comments Foot Pain bottom of left foot Encounter Details Date Type Department Care Team Description 05/17/2019 Office Visit [facility] Family Skye Quinn Plantar wart ( Primary Medicine - Xenia PA Dx) 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
--- OUTSIDE RECORDS SUMMARY | 2019-06-12 06:11 | XMS REPORT | Summary of Care ---
:1975 Author Organization [facility] Address [address] [place] [id number]- Encounter HQ Marta_contreras(FIN) [id number] Date(s): 03/15/19 - 03/16/19 [facility] [address] [place] [address] Professional Services provided by [facility] [employer] [place] [address]- Discharge Disposition: Home or Self Care Attending Physician: Jose Miguel West MD Admitting Physician: Jose Miguel West MD Referring Physician: Jose Miguel West MD Vital Signs Most recent to oldest 1 2 3 [Reference Range]: Height 190.5 cm (03/15/19 5:54 AM) Temperature Oral [96.4-99.1 97.8 DegF 97.4 DegF 97.5 DegF DegF] (03/16/19 3:00 PM) (03/16/19 11:00 AM) (03/16/19 4:00 AM) Blood Pressure [90-140/60-90 122/64 mmHg 125/62 mmHg 129/68 mmHg mmHg] (03/16/19 5:00 PM) (03/16/19 3:00 PM) (03/16/19 1:00 PM) Respiratory Rate [14-20 BRMIN] 16 BRMIN 18 BRMIN 16 BRMIN (03/16/19 5:00 AM) (03/16/19 4:00 AM) (03/16/19 3:17 AM) Weight 116.818 kg (03/15/19 5:54 AM) Body Mass Index 32.19 m2 (03/15/19 5:54 AM) Problem List Condition Effective Dates Status Health Status Informant Gout(Confirmed) Active HTN (hypertension)(Confirmed) Active Allergies, Adverse Reactions, Alerts No Known Medication Allergies Medications acetaminophen 1,000 mg, 100 mL, Route: IVPB, Drug form: INJ, ONCE, Dosing Weight 116.818, kg, PRN Pain Score 1-3, Start date: 03/15/19 9:20:00 CDT Notes: Infuse over 15 minutesDo not exceed 4gm/day of acetaminophen MEDICATION WASTE ProductSize: 1000 mgProduct Wasted: ___ mg Start Date: 03/15/19 Stop Date: 03/16/19 Status: DiscontinuedANES acetaminophen 1,000 mg, 2 tab, Route: PO, Drug form: TAB, ONCE, Dosing Weight 116.818, kg, PRN Pain Score 1-3, Start date: 03/15/19 10:31:00 CDT Notes: Max acetaminophen 4000 mg/day (4 gm/day). (Same as: Tylenol Extra Strength) Start Date: 03/15/19 Stop Date: 03/15/19 Status: DiscontinuedANES fentaNYL 25 microgram, 0.5 mL, Route: IVP, Drug form: INJ, Q5Min, Dosing Weight 116.818, kg, PRN Pain Score 4-6, Priority: Routine, Start date: 03/15/19 10:31:00 CDT, Duration: 4 doses or times, Stop date: Limited # of times Notes: (Same as: Sublimaze) Preservative free. Start Date: 03/15/19 Stop Date: 03/15/19 Status: DiscontinuedANES flumazenil 0.2 mg, 2 mL, Route: IVP, Drug form: INJ, PRN, Dosing Weight 116.818, kg, PRN Benzodiazepine Reversal, Initial dose, Start date: 03/15/19 10:31:00 CDT, Duration: 30 day, Stop date: 04/14/19 10:30:00 CDT Notes: (Same as: Romazicon) Start Date: 03/15/19 Stop Date: 03/15/19 Status: DiscontinuedANES hydrALAZINE 10 mg, 0.5 mL, Route: IVP, Drug form: INJ, Q20Min, Dosing Weight 116.818, kg, PRN Elevated BP, Startdate: 03/15/19 10:31:00 CDT, Duration: 2 doses or times, Stop date: Limited # of times Notes: (Same as: Apresoline)Push over 5 minutes Start Date: 03/15/19 Stop Date: 03/15/19 Status: DiscontinuedANES naloxone 0.4 mg, 1 mL, Route: IVP, Drug form: INJ, Q2MIN, Dosing Weight 116.818, kg, PRN Narcotic Reversal, Start date: 03/15/19 10:31:00 CDT, Duration: 8 doses or times , Stop date: Limited # of times Notes: Same as Narcan Start Date: 03/15/19 Stop Date: 03/15/19 Status: DiscontinuedANES ondansetron 4 mg, 2 mL, Route: IVP, Drug form: INJ, ONCE, Dosing Weight 116.818, kg, PRN Nausea & Vomiting, Start date: 03/15/19 10:31:00 CDT Notes: (Same as: Zofran) MEDICATION WASTE Product Size: 4 mgProduct Wasted: ___ mg Start Date: 03/15/19 Stop Date: 03/15/19 Status: DiscontinuedANES oxyCODONE 5 mg immediate release tablet 5 mg, 1 tab, Route: PO, Drug form: TAB, Q4H, Dosing Weight 116.818, kg, PRN Pain Score 4-6, Start date: 03/15/19 10:31:00 CDT, Duration: 30 day, Stop date: 04/14/19 10:30:00 CDT Notes: (Same as: Roxicodone) Start Date: 03/15/19 Stop Date: 03/15/19 Status: Discontinuedaspirin 81 mg, 1 tab, Route: PO, Drug form: ECTAB, Daily, Dosing Weight 116.818, kg, Start date: 03/16/19 9:00:00 CDT, Duration: 30 day, Stop date: 04/14/19 9:00:00 CDT Notes: Do not crush or chew.(Same As: Ecotrin) Start Date: 03/16/19 Stop Date: 03/16/19 Status: Discontinuedaspirin 81 mg tablet, chewable 81 mg=1 tab, PO, Daily, # 30 tab, 3 Refill(s), [facility] [id number] Start Date: 03/16/19 Stop Date: 07/14/19 Status: Orderedbenzonatate 100 mg, 1 cap, Route: PO, Drug form: CAP, TID, Dosing Weight 116.818, kg, PRN Cough, Start date: 03/15/19 20:58:00 CDT, Duration: 30 day, Stop date: 04/14/19 20:57:00 CDT Notes: (Same As: Amanda Hough)"Do Not Crush" Start Date: 03/15/19 Stop Date: 03/16/19 Status: DiscontinuedceFAZolin (ANES) Route: IV, Drug form: INJ, ONCE, Stop date: 03/15/19 9:12:00 CDT Start Date: 03/15/19 Stop Date: 03/15/19 Status: CompletedceFAZolin (SCIP) + sterile water 10 mL 1 gm, Route: IVPB, Q8H, Dosing Weight 116.818, kg, Start date: 03/15/19 16:00: 00 CDT, Duration: 1 doses or times, Stop date: 03/15/19 16:00:00 CDT, ABX Indication: Surgical Prophylaxis Notes: (Same As: aMry Bruno) MEDICATION WASTE Product Size: 1000 mgProduct Wasted: ___ mg Start Date: 03/15/19 Stop Date: 03/15/19 Status: Completedclopidogrel 75 mg oral tablet 75 mg=1 tab, PO, Daily, # 30 tab, 3 Refill(s), Pharmacy: [facility] [id number] Start Date: 03/16/19 Stop Date: 07/14/19 Status: OrderedDiovan 320 mg, 2 tab, Route: PO, Drug form: TAB, Daily, Dosing Weight 116.818, kg, Start date: 03/16/19 9:00:00 CDT, Duration: 30 day, Stop date: 04/14/19 9:00:00 CDT Notes: Same as Obdulia Start Date: 03/16/19 Stop Date: 03/16/19 Status: Discontinueddocusate 100 mg, 1 cap, Route: PO, Drug form: CAP, Q12H, Dosing Weight 116.818, kg, Start date: 03/15/19 21:00:00 CDT, Duration: 30 day, Stop date: 04/14/19 9:00: 00 CDT Notes: (Same as: Colace) (Do Not Crush) Start Date: 03/15/19 Stop Date: 03/16/19 Status: Discontinuedenoxaparin 40 mg, 0.4 mL, Route: SUB-Q, Drug form: INJ, [id number], Dosing Weight 116.818, kg , Start date: 03/16/19 9:00:00 CDT, Duration: 30 day, Stop date: 04/14/19 9:00: 00 CDT Notes: (Same as: Lovenox) Start Date: 03/16/19 Stop Date: 03/16/19 Status: DiscontinuedExparel 20 mL, Route: InFILtration(local), Drug Form: INJ, Dosing Weight 112.727, kg, 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, 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, Start date: 03/15/19 6:00:00 CDT, Duration: 1 day, Stop date: 03/16/19 5:59:00 CDT Notes: (Same as: Exparel) NOT FOR IV use Postoperative analgesia: Infiltration (local): Dose is based on surgical site and volume required to cover the area (in general, the maximum total dose is 266 mg).Bunionectomy: 7 mL into the tissues surrounding the osteotomy and 1 mL into the subcutaneous tissue of the surgical site (total dose=8 mL [106 mg])Hemorrhoidectomy: 30 mL ( 20 mL vial diluted with 10 mL NS) divided and administered as 6 injections of 5 mL each (total dose=30 mL [266 mg])Interscalene brachial plexus nerve block: Single dose: Total shoulder arthroplasty or rotator cuff repair: 133 mg (10 mL) Start Date: 03/15/19 Stop Date: 03/16/19 Status: DiscontinuedfentaNYL (ANES) Route: IV, Drug form: INJ, ONCE, Stop date: 03/15/19 9:12:00 CDT Start Date: 03/15/19 Stop Date: 03/15/19 Status: Completedfluticasone nasal 0.05 mg/inh spray 1 spray, NASAL, Daily, # 16 gm, 0 Refill(s) Start Date: 03/15/19 Status: Orderedheparin (ANES) Route: IV, Drug form: INJ, ONCE, Stop date: 03/15/19 9:12:00 CDT Start Date: 03/15/19 Stop Date: 03/15/19 Status: Completedmontelukast 10 mg oral tablet 10 mg=1 tab, PO, Daily, # 30 tab, 0 Refill(s) Start Date: 03/15/19 Status: OrderedniCARdipine 40 mg in NS 200 mL (Titrate.) IV 40 mg 40 mg, 200 mL, Rate: Titrate, Start Dose: 5 mg/hr, Titration: 2mg every 15 minutes PRN, Goal(s): maintain MAP 75-85 mmHg, Max Dose: 15mg/hr, Route: IV, Dosing Weight 116.818 kg, Total Volume: 200, Start date: 03/15/19 9:20:00 CDT, Duration: 30 day, St... Notes: Same as: CardeneConcentration: (0.2 mg /1 ml ) Start Date: 03/15/19 Stop Date: 03/15/19 Status: Discontinuedondansetron 4 mg, 2 mL, Route: IVP, Drug form: INJ, Q8H, Dosing Weight 116.818, kg, PRN Nausea & Vomiting, Start date: 03/15/19 9:20:00 CDT, Duration: 30 day, Stop date: 04/14/19 9:19:00 CDT Notes: (Same as: Zofran) MEDICATION WASTE Product Size: 4 mgProduct Wasted: ___ mg Start Date: 03/15/19 Stop Date: 03/16/19 Status: Discontinuedpantoprazole 40 mg, 1 tab, Route: PO, Drug form: ECTAB, Before Dinner, Dosing Weight 116.818 , kg, Start date: 03/15/19 16:30:00 CDT, Duration: 30 day, Stop date: 04/13/19 16:30:00 CDT Notes: Tablet should not be chewed or crushed.(Same as: Protonix) Start Date: 03/15/19 Stop Date: 03/16/19 Status: DiscontinuedPlavix 75 mg, 1 tab, Route: PO, Drug form: TAB, Daily, Dosing Weight 116.818, kg, Start date: 03/15/19 20:34:00 CDT, Duration: 30 day, Stop date: 04/14/19 9:00: 00 CDT Notes: (Same As: Plavix) Start Date: 03/15/19 Stop Date: 03/16/19 Status: Discontinuedpolyethylene glycol 3350 17 gm, 1 pkt, Route: PO, Drug form: PWDR, Daily, Dosing Weight 116.818, kg, Start date: 03/16/19 9:00:00 CDT, Duration: 30 day, Stop date: 04/14/19 9:00:00 CDT Notes: Dissolve in 8 oz of water or juice.(Same as: Miralax) Start Date: 03/16/19 Stop Date: 03/16/19 Status: Discontinuedpropofol (ANES) 10 mg Route: IV, Drug form: INJ, Start date: 03/15/19 8:20:00 CDT, Stop date: 9:20:00 CDT Start Date: 03/15/19 Stop Date: 03/15/19 Status: Completedprotamine (ANES) Route: IV, Drug form: INJ, ONCE, Stop date: 03/15/19 10:34:00 CDT Start Date: 03/15/19 Stop Date: 03/15/19 Status: CompletedSodium Chloride 0.9% (Bolus) IV 250 mL, 250 ml/hr, Infuse Over: 1 hr, Route: IV, 250, Drug form: INJ, ONCALL, Priority: Routine, Dosing Weight 112.727 kg, Start date: 03/15/19 6:00:00 CDT, Duration: 1 doses or times Start Date: 03/15/19 Stop Date: 03/15/19 Status: CompletedSodium Chloride 0.9% (titrate) 250 mL 250 mL, Rate: To prime line and flush remaining blood products., Dosing Weight 112.727, kg, Route: IV, Total Volume: 250, Start Date: 03/15/19 5:53:00 CDT, Duration: 30 day, Stop date: 04/14/19 5:52:00CDT, Replace Every: 24 hr Start Date: 03/15/19 Stop Date: 03/16/19 Status: DiscontinuedSodium Chloride 0.9% IV (ANES) 250 mL Route: IV, Total Volume: 250, Start date: 03/15/19 10:31:00 CDT, Stop date: 11:31:00 CDT Start Date: 03/15/19 Stop Date: 03/15/19 Status: CompletedSodium Chloride 0.9% IV 750 mL 750 mL, Rate: 75 ml/hr, Infuse over: 10 hr, Route: IV, Dosing Weight 112.727 kg , Total Volume: 750, Start date: 03/15/19 5:53:00 CDT, Duration: 24 hr, Stop date: 03/16/19 5:52:00 CDT, 2.46, m2 Start Date: 03/15/19 Stop Date: 03/15/19 Status: DiscontinuedTylenol 1,000 mg, 2 tab, Route: PO, Drug form: TAB, Q6H, Dosing Weight 116.818, kg, PRN Pain Score 1-5, Start date: 03/15/19 21:36:00 CDT, Duration: 30 day, Stop date: 04/14/19 21:35:00 CDT Notes: Max acetaminophen 4000 mg/day (4 gm/day). (Same as: Tylenol Extra Strength) Start Date: 03/15/19 Stop Date: 03/16/19 Status: Discontinued Results Most recent to oldest 1 2 3 [Reference Range]: Neutrophils # [1.5-8.1 4.5 K/CMM 3.2 K/CMM 3.5 K/CMM K/CMM] (03/16/19 12:34 AM) (03/15/19 10:58 AM) (03/15/19 5:50 AM) Lymphocytes # [1.0-5.5 2.0 K/CMM 1.9 K/CMM 2.5 K/CMM K/CMM] (03/16/19 12:34 AM) (03/15/19 10:58 AM) (03/15/19 5:50 AM) Monocytes # [0.0-0.8 0.7 K/CMM 0.6 K/CMM 0.7 K/CMM K/CMM] (03/16/19 12:34 AM) (03/15/19 10:58 AM) (03/15/19 5:50 AM) Eosinophils # [0.0-0.5 0.2 K/CMM 0.2 K/CMM 0.2 K/CMM K/CMM] (03/16/19 12:34 AM) (03/15/19 10:58 AM) (03/15/19 5:50 AM) Basophils # [0.0-0.2 0.1 K/CMM K/CMM] (03/15/19 5:50 AM) BNP [<=100 pg/mL] 166 pg/mL *HI* (03/15/19 5:50 AM) eGFR 95 mL/min/1.73m2 1 109 mL/min/1.73m2 2 101 mL/min/1.73m2 3 *NA* *NA* *NA* (03/16/19 12:34 AM) (03/15/19 10:58 AM) (03/15/19 5:50 AM) FFP product Product available (03/15/19 5:53 AM) RBC product Product available (03/15/19 5:53 AM) ABO/Rh AB POS *Unknown* (03/15/19 6:22 AM) A/G Ratio [0.7-1.6] 1.2 (03/15/19 5:50 AM) Antibody Scrn Negative (03/15/19 6:22 AM) Albumin Lvl [3.5-5.0 3.5 g/dL g/dL] (03/15/19 5:50 AM) Alk Phos [39-136 unit/L] 37 unit/L *LOW* (03/15/19 5:50 AM) ALT [0-65 unit/L] 25 unit/L (03/15/19 5:50 AM) AGAP [10.0-20.0 mEq/L] 8.0 mEq/L 11.7 mEq/L 12.3 mEq/L *LOW* (03/15/19 10:58 AM) (03/15/19 5:50 AM) (03/16/19 12:34 AM) AST [0-37 unit/L] 20 unit/L (03/15/19 5:50 AM) B/C Ratio [6-25] 19 (03/15/19 5:50 AM) Basophils [0.0-1.0 %] 0.4 % 0.5 % 0.8 % (03/16/19 12:34 AM) (03/15/19 10:58 AM) (03/15/19 5:50 AM) BUN [7-22 mg/dL] 19 mg/dL 15 mg/dL 18 mg/dL (03/16/19 12:34 AM) (03/15/19 10:58 AM) (03/15/19 5:50 AM) Calcium Lvl [8.5-10.5 8.2 mg/dL 7.9 mg/dL 8.4 mg/dL mg/dL] *LOW* *LOW* *LOW* (03/16/19 12:34 AM) (03/15/19 10:58 AM) (03/15/19 5:50 AM) CHD Risk [4.00-7.30] 3.22 *LOW* (03/16/19 12:34 AM) Chol [<=199 mg/dL] 164 mg/dL (03/16/19 12:34 AM) Chloride Lvl [95-109 108 mEq/L 107 mEq/L 106 mEq/L mEq/L] (03/16/19 12:34 AM) (03/15/19 10:58 AM) (03/15/19 5:50 AM) CO2 [24-32 mEq/L] 27 mEq/L 24 mEq/L 25 mEq/L (03/16/19 12:34 AM) (03/15/19 10:58 AM) (03/15/19 5:50 AM) Creatinine Lvl [0.50-1.40 0.98 mg/dL 0.82 mg/dL 0.93 mg/dL mg/dL] (03/16/19 12:34 AM) (03/15/19 10:58 AM) (03/15/19 5:50 AM) Eosinophils [0.0-4.0 %] 2.2 % 2.6 % 2.5 % (03/16/19 12:34 AM) (03/15/19 10:58 AM) (03/15/19 5:50 AM) Globulin [2.7-4.2 g/dL] 3.0 g/dL (03/15/19 5:50 AM) Glucose Lvl [70-99 mg/dL] 103 mg/dL 89 mg/dL 93 mg/dL *HI* (03/15/19 10:58 AM) (03/15/19 5:50 AM) (03/16/19 12:34 AM) Hct [42.0-54.0 %] 36.7 % 36.2 % 38.9 % *LOW* *LOW* *LOW* (03/16/19 12:34 AM) (03/15/19 10:58 AM) (03/15/19 5:50 AM) HDL [>=61 mg/dL] 51 mg/dL *LOW* (03/16/19 12:34 AM) Hgb [14.0-18.0 g/dL] 12.8 g/dL 12.7 g/dL 13.6 g/dL *LOW* *LOW* *LOW* (03/16/19 12:34 AM) (03/15/19 10:58 AM) (03/15/19 5:50 AM) INR [0.85-1.17] 0.98 1.15 1.03 (03/16/19 12:34 AM) (03/15/19 10:58 AM) (03/15/19 5:50 AM) Potassium Lvl [3.5-5.1 4.0 mEq/L 4.7 mEq/L 4.3 mEq/L mEq/L] (03/16/19 12:34 AM) (03/15/19 10:58 AM) (03/15/19 5:50 AM) LDL (Calculated) [<=99 60 mg/dL mg/dL] (03/16/19 12:34 AM) Lymphocytes [20.0-40.0 %] 26.9 % 32.2 % 35.6 % (03/16/19 12:34 AM) (03/15/19 10:58 AM) (03/15/19 5:50 AM) MCH [27.0-31.0 pg] 31.8 pg 32.2 pg 31.9 pg *HI* *HI* *HI* (03/16/19 12:34 AM) (03/15/19 10:58 AM) (03/15/19 5:50 AM) MCHC [32.0-36.0 g/dL] 34.8 g/dL 35.0 g/dL 34.9 g/dL (03/16/19 12:34 AM) (03/15/19 10:58 AM) (03/15/19 5:50 AM) MCV [80.0-94.0 fL] 91.5 fL 91.9 fL 91.6 fL (03/16/19 12:34 AM) (03/15/19 10:58 AM) (03/15/19 5:50 AM) Magnesium Lvl [1.8-2.4 2.3 mg/dL 1.8 mg/dL 2.0 mg/dL mg/dL] (03/16/19 12:34 AM) (03/15/19 10:58 AM) (03/15/19 5:50 AM) Monocytes [2.0-12.0 %] 9.2 % 9.7 % 10.6 % (03/16/19 12:34 AM) (03/15/19 10:58 AM) (03/15/19 5:50 AM) MPV [7.4-10.4 fL] 8.9 fL 8.7 fL 8.7 fL (03/16/19 12:34 AM) (03/15/19 10:58 AM) (03/15/19 5:50 AM) Sodium Lvl [135-145 139 mEq/L 138 mEq/L 139 mEq/L mEq/L] (03/16/19 12:34 AM) (03/15/19 10:58 AM) (03/15/19 5:50 AM) Platelet [133-450 K/CMM] 158 K/CMM 153 K/CMM 170 K/CMM (03/16/19 12:34 AM) (03/15/19 10:58 AM) (03/15/19 5:50 AM) Segs [45.0-75.0 %] 61.3 % 55.0 % 50.5 % (03/16/19 12:34 AM) (03/15/19 10:58 AM) (03/15/19 5:50 AM) Total Protein [6.4-8.4 6.5 g/dL g/dL] (03/15/19 5:50 AM) PT [12.0-14.7 seconds] 12.8 seconds 14.5 seconds 13.3 seconds (03/16/19 12:34 AM) (03/15/19 10:58 AM) (03/15/19 5:50 AM) PTT [22.9-35.8 seconds] 26.0 seconds 43.3 seconds 28.9 seconds (03/16/19 12:34 AM) *HI* (03/15/19 5:50 AM) (03/15/19 10:58 AM) RBC [4.70-6.10 M/CMM] 4.01 M/CMM 3.94 M/CMM 4.25 M/CMM *LOW* *LOW* *LOW* (03/16/19 12:34 AM) (03/15/19 10:58 AM) (03/15/19 5:50 AM) RDW [11.5-14.5 %] 13.4 % 13.6 % 13.6 % (03/16/19 12:34 AM) (03/15/19 10:58 AM) (03/15/19 5:50 AM) Bili Total [0.2-1.3 0.4 mg/dL mg/dL] (03/15/19 5:50 AM) Trig [<=149 mg/dL] 267 mg/dL *HI* (03/16/19 12:34 AM) UA Bili [Negative] Negative *NA* (03/15/19 6:52 AM) UA Blood [Negative] Negative (03/15/19 6:52 AM) UA Color [Yellow] Light Yellow *NA* (03/15/19 6:52 AM) UA Glucose [Negative Negative mg/dL mg/dL] *NA* (03/15/19 6:52 AM) UA Ketones [Negative Negative mg/dL mg/dL] *NA* (03/15/19 6:52 AM) UA Leuk Est [Negative] Negative (03/15/19 6:52 AM) UA Nitrite [Negative] Negative (03/15/19 6:52 AM) UA pH [5.0-8.0] 5.0 (03/15/19 6:52 AM) UA Protein [Negative Negative mg/dL mg/dL] (03/15/19 6:52 AM) UA RBC [0-2 /HPF] <1 /HPF (03/15/19 6:52 AM) UA Spec Grav [<=1.030] 1.006 (03/15/19 6:52 AM) UA Sq Epi None Seen *NA* (03/15/19 6:52 AM) UA Turbidity [Clear] Clear (03/15/19 6:52 AM) UA Urobilinogen [0.1-1.0 <1.0 mg/dL mg/dL] (03/15/19 6:52 AM) UA WBC [0-5 /HPF] <1 /HPF (03/15/19 6:52 AM) WBC [3.7-10.4 K/CMM] 7.4 K/CMM 5.8 K/CMM 6.9 K/CMM (03/16/19 12:34 AM) (03/15/19 10:58 AM) (03/15/19 5:50 AM) Ca Ion WB [1.05-1.25 1.11 mMol/L mMol/L] (03/15/19 10:58 AM) Ca Norm WB [1.05-1.25 1.07 mMol/L mMol/L] (03/15/19 10:58 AM) POC Activated Clotting 110 seconds 343 seconds 186 seconds Time *NA* *NA* *NA* (03/15/19 10:22 AM) (03/15/19 9:34 AM) (03/15/19 9:26 AM) VLDL 53 *NA* (03/16/19 12:34 AM) 1Result Comment: The eGFR is calculated [...] eGFR should be multiplied by the estimated BMI.2Result Comment: The eGFR is calculated using the CKD-EPI formula. In most young, healthy individualsthe eGFR will be >90 mL/min/1.73m2. [...] eGFR should be multiplied by the estimated BMI.3Result Comment: The eGFR is calculated using the CKD-EPI formula. In most young, healthy individualsthe eGFR will be >90 mL/min/1.73m2. [...] section Social History Social History Type Response Substance Abuse Use: None. Alcohol Current, Type [...] Smoking Cessation Counseling Yes entered on: 03/15/19 Assessment and Plan Extracted from: Title: CCU History and Physical Author: Mer Melendez MD Date: Mr. Hardy 44yo M with PMH diastolic HF, Aortic valve replacement and ascending aortic aneurysm [id number], HLD and HTNadmitted to CCU post TAVR [...] independently, and have reviewed the history, radiographic an d cardiac imaging, and diagnostic testing. I agree with the findings and plan outlined in the note by the resident/fellow. Extracted from: Title: Clinical Document Author: Cee Fish MD Date: [...] valve replacement (TAVR) utilizing a #29 Taylor Ryan S3 pericardial valve via transfemoral approach with GETA 2. Percutaneous access of the right and left common femoral artery 3. Transthoracic ECHO performed by cardiology 4. Coronary artery arteriography FINDINGS AT THE TIME OF SURGERY: 1. Severe calcifications in the aortic valve. 2. The delivery system was passed without difficulty into the left ventricular outflow tract for deployment. 3. A 29 mm Ryan S3 was required. 3. Post replacement YESSICA revealed no paravalvular leak. 4. Right pedal vessels (PT) with palpable pulse INDICATIONS: The risk and benefits were explained to the patient. He understands these risks and agrees to proceed with surgical intervention. The patient was seen by myself, Dr. Eric Collazo, tim West and deemed intermediate risk for conventional AVR. A valve in valve procedure was the only option for this patient. PROCEDURE IN DETAIL: Further details will be dictated by Dr. West as he was the pharmacist's aide. 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 A time-out procedure was performed whic h confirmed the patient s name, MRN, and procedure to be performed. [...] to maintain an ACT > 250 seconds. The R IGHT common femoral artery was prepared. Subsequently, test pacing was performed and obtained as expected at 180 beats per minute. An aortic angiogram root shot was performed, noting the optimal angle f or deployment of the valve. This confirmed the position already determined by CT angiogram 3-D reconstruction. Subsequently, the #29 mm Taylor RYAN S3 transcatheter valve was placed into the sheath s ystem in the RIGHT femoral artery (direct) and brought up through the aortic valve and placed in correct position. This was confirmed by the heart valve team. Subsequently, the rapid ventricular pacing was performed, and the valve was deployed in the aortic annulus appropriately. The cordis and sheath were pulled back. Post-placement TTE revealed good placement of the valve with no aortic insufficienc y. The gradient was still 25 mmHg, and thus a 29 mm True Balloon was inserted into the aortic valve and the annulus was enlarged. The subsequent mean gradient was 11 mmHg. Subsequently, the sheaths wer e removed, the pacing wire was left in [...]
--- OUTSIDE RECORDS SUMMARY | 2019-06-12 06:11 | XMS REPORT | Summary of Care ---
:1975 Author Organization [facility] - Health Address [address] [place] [id number] Care Team Providers Name Role Phone Eric Thompson MD Primary Care Provider Rylie Ward MD Unavailable Unavailable Encounter Details Date Type Department Care Team Description 05/17/2019 Orders Only [facility] Doctor Unassigned, No [address] [facility] Name [place] [id number] [address] [place] [id number] Allergies No Known Allergiesdocumented as of this encounter (statuses as of 05/17/2019) Medications Medication Sig Dispensed Refills Start Date End Date Status BYSTOLIC 10 mg tablet 0 10/20/2015 Active irbesartan 300 mg tablet [...] of this encounter Last Filed Vital Signs Not on filedocumented in this encounter Plan of Treatment Date Type Specialty Care Team Description 05/17/2019 Office Visit Family Medicine Skye Quinn PA [address] [place] [address], [place] [address] 11/06/2019 Office Visit Family Medicine Eric Thompson MD [address] [place] [address] Health Maintenance Due Date Last Done Comments PNEUMOCOCCAL 0-64 YEARS COMBINED SERIES (1 of 1 - 1983 PPSV23) INFLUENZA VACCINE 06/17/2019 DTaP,Tdap,and Td Vaccines (2 - Td) 06/24/2027 06/24/2017 documented as of this encounter Procedures Procedure Name Priority Date/Time Associated Diagnosis Comments NO SHOW OR MISSED Routine 05/17/2019 12:54 PM APPOINTMENT POLICY CDT ACKNOWLEDGEMENT documented in this encounter Results Not on filedocumented in this encounter Insurance Payer Benefit Plan / Subscriber ID Effective Phone Address Type Group Dates [facility] [id number] 2017-Pre [phone] PPO/ POS [employer] sent [phone] [place] [address] [place] [id number] 2017-Pre [facility] sent Counts include 234 beds at the [facility] documented as of this encounter
[2019-06-12] MEDS ORDERED: Ringers Lactate 1,000 ML IV ONE (06:26)
[2019-06-12] MEDS ORDERED: CEFAZOLIN/SWI 1gm 1 GM/10 ML SYR ONE (06:26)
[2019-06-12] MEDS ORDERED: PROPOFOL 200 MG/20 ML VIAL IV ONE (06:59)
[2019-06-12] MEDS ORDERED: MIDAZOLAM HCL 2 MG/2 ML INJ ONE (07:00)
[2019-06-12] MEDS ORDERED: ONDANSETRON 4 MG/2 ML VIAL ONE (07:01)
[2019-06-12] MEDS ORDERED: FENTANYL CITR 100 MCG/2 ML ONE ×2 (07:01→08:17)
[2019-06-12] MEDS ORDERED: LIDOCAINE 1% MPF 2 ML AMPULE ONE (07:02)
[2019-06-12] MEDS ORDERED: LIDOCAINE 1% MPF 30 ML VIAL ONE (07:31)
[2019-06-12] MEDS ORDERED: EPHEDRINE SULF 50 MG/ML VIAL ONE (08:21)
[2019-06-12] MEDS ORDERED: dexAMETHasone 4 MG/ML VIAL ONE (08:31)
--- NOTE | 2019-06-12 19:56 | OP ---
Date of Procedure: 06/12/2019 Surgeon: Evaristo James DPM Preoperative Diagnosis: Soft tissue mass, second intermetatarsal space, left foot. Postoperative Diagnosis: Gouty tophus, second interspace, intermetatarsal space, left foot. Procedure Performed: Excision of soft tissue mass, second interspace, left foot. Anesthesia: Via local infiltration. Description Of Procedure: The patient was brought in to the operating room, placed on the operating table in supine position. Once adequate IV sedation was obtained, the patient was injected with a to gabe of 10 mL of 0.5% Marcaine plain. The patient was prepped and draped in usual sterile manner and the left extremity was elevated to 60 degree for a period of 3 minutes. An Esmarch bandage was appli ed to exsanguinate the blood supply. Pneumatic ankle tourniquet was elevated to 150 mmHg and the Esm arch was removed. The incision was placed overlying the soft tissue mass in the second intermetatars al space of the left foot extending from mid shaft just barely onto the third toe. The incision was deepened via sharp and blunt dissection. Care was taken as the dissection was made as the soft tissu e mass was directly underneath the incision. Using the laser technique where possible, soft tissue m ass was isolated and dissection was cut and sent to pathology for frozen section due to the patient's statement of it being acute onset. It was obvious though that the soft tissue mass was a gouty toph us due to the consistency of the material. This was confirmed from pathology and the soft tissue mas s was then excised. It was partially encapsulated with a foreign body reaction, but the majority of the tophus was in and around the tendons and the capsular tissue of the second and third metatarsal a nd metatarsophalangeal joint on the second. Care was taken to avoid totally disrupting any structure . Capsular tissue was thinned, removing the gouty tophus as well as the extensor digitorum longus te ndon. The tendon was intact when finished, however. The capsular tissue was debrided of the tophus material. The joint was never entered on the second or third metatarsophalangeal joint. All vascula r structures were bovied. All neurologic structures were avoided. The area was flushed with copious amounts of sterile saline after thorough dissection. The area was closed with 3-0 Vicryl subcutaneo usly and 4-0 Prolene horizontal mattress suture on the skin. 4 mg of Decadron, 1 mL was injected int o the area to prevent gout attack. The area was dressed with Adaptic, dry sterile gauze, dry sterile Jr, Kerlix, cold therapy pad, and Teja bandaging. Pneumatic ankle tourniquet was released. Capil margy return was seen to be instantaneous to all digits. The patient will be followed in my office fo r postoperative care. ARIANNA/YULIET Voice ID: [id number] Report ID: [id number]
--- NOTE | 2019-06-12 19:56 | DS ---
Date of Discharge: 06/12/2019 Date Of Surgery: 06/12/2019. Surgeon: Evaristo James DPM Preoperative Diagnosis: Soft tissue mass, left foot second interspace. Postoperative Diagnosis: Gouty tophus, second intermetatarsal space, left foot. Procedure Performed: Excision with biopsy of soft tissue mass, second interspace, left foot. Hospital Course: The patient tolerated the procedure and anesthesia well. The patient will be relea sed to home per Anesthesia guidelines. The patient will ambulate in the postoperative shoe. Postope rative instructions were given in the written form as well as emergency phone number and instructions for the cold therapy unit. The patient will be seen in 1 week in my office for postoperative care. ARIANNA/YULIET Voice ID: [id number] Report ID: [id number]
== END 2019-06-12 10:20 | disposition home or self-care (01) ==
LOC: OR 06:02
PROVIDERS: ATTEND Podiatrist
PROC: 0JBR0ZZ Excision of Left Foot Subcutaneous Tissue and Fascia, Open Approach (ICD-10-PCS; principal; 2019-06-12 07:30)
DX: M1A.9XX1 Chronic gout, unspecified, with tophus (tophi) (principal); I25.9 Chronic ischemic heart disease, unspecified; I10 Essential (primary) hypertension; Z79.02 Long term (current) use of antithrombotics/antiplatelets; Z79.82 Long term (current) use of aspirin; Z79.899 Other long term (current) drug therapy; Z95.2 Presence of prosthetic heart valve; Z90.49 Acquired absence of other specified parts of digestive tract; Z80.9 Family history of malignant neoplasm, unspecified
CPT/HCPCS: 28039; 85025; 80048; 36415; 85610; 88331; 88305; 85730; 88333; 71046; J2704; J2250; J3010 ×2; J2001; J0690; J2405